=== PATIENT | male | born 1990 | race Two or more races ===

== ENCOUNTER 2017-11-15 11:11 | Inpatient (IN) | payer OTHER ==
[~2017-11-15] VITALS: Ht 190.5 cm; Wt 101.2 kg
[~2017-11-15 11:11] MED LIST: DICLOFENAC SODI50 MG PO
[2017-11-18] MEDS ORDERED: MULTI VITAMIN1 EACH PO (14:57)
== END 2017-11-22 10:48 | disposition home or self-care (01) | DRG 465 ==
LOC: SURH 11-21 09:00 → O/R 11-21 10:15 → SURH 11-21 14:00
PROVIDERS: Plastic Surgery
PROC: 0JB80ZZ Excision of Abdomen Subcutaneous Tissue and Fascia, Open Approach (ICD-10-PCS; principal; 2017-11-21 09:00)
DX: M62.08 Separation of muscle (nontraumatic), other site (principal); E66.01 Morbid (severe) obesity due to excess calories; E65 Localized adiposity